=== PATIENT | female | born 1965 | race Hispanic/Latino ===

== ENCOUNTER 2019-01-06 13:23 | Emergency (ER) | payer BC ==
[~2019-01-06] VITALS: Ht 160 cm; Wt 80.3 kg
[2019-01-06] MEDS ORDERED: SODIUM CHLORIDE 0.9% 1000ML 1,000 ML IV SCH (13:45)
--- NOTE | 2019-01-06 14:36 | NUR ---
regular insulin 10 units sq verified with md dickey.
[2019-01-06] MEDS ORDERED: INSULIN REGULAR, HUMAN 100 UNIT/1 ML 3ML VIAL SQ ONE (14:45)
== END 2019-01-06 16:19 | disposition home or self-care (01) ==
LOC: FSED 13:23
DX: E11.65 Type 2 diabetes mellitus with hyperglycemia (principal); Z88.0 Allergy status to penicillin
CPT/HCPCS: 36415; 80053; 81003; 82948; 99284; J1817